=== PATIENT | male | born 1945 | race Caucasian/White ===

== ENCOUNTER 2016-09-10 08:07 | Emergency (ER) | payer OTHER ==
--- NOTE | 2016-09-10 10:05 | DIAGNOSTIC IMAGING REPORT ---
PROCEDURE: XR CHEST 1 VIEW INDICATION: SHORTNESS OF BREATH TECHNIQUE: Portable AP view 08:52 a.m. COMPARISON: None. FINDINGS: Poor inspiration with minor left basilar atelectasis. Heart and mediastinum are normal. Thorax is normal. IMPRESSION: 1. Minor left basilar atelectasis.
--- NOTE | 2016-09-10 10:09 | ED CLINICAL REPORT ---
Clinical Report - Physicians/Mid Levels [facility] [address] [place] [address] 09/10/2016 8:10 Patient: EVANS BLUE Time Seen: 08:36. HISTORY OF PRESENT ILLNESS Chief Complaint: CHEST PAIN. At its maximum, severity described as 10 / 10. When seen in the E.D., severity described as 4 / 10. Modifying factors- worsened by deep breaths. It is described as sharp and stabbing and it is described as located in the left chest area. Similar symptoms previously: Many times. Recent medical care: Not recently seen/assessed. REVIEW OF SYSTEMS No fever, chills, cough, abdominal pain or black stools. No difficulty with urination or bloody stools. All systems otherwise negative, except as recorded above. PAST HISTORY PCP: Kait [place] Illness: Anticoaulation, DVT, PE. SOCIAL HISTORY Never smoker. Heavy alcohol use. No drug use. ADDITIONAL NOTES The nursing notes have been reviewed. PHYSICAL EXAM Vital Signs: 09/10/2016 08:20 BP: 159/98. HR: 74. RR: 18. O2 saturation: 97%. Temp: 98.3 F. Pain level now: 10/10. Appearance: Alert. Oriented X3. No acute distress. Eyes: Eyes normal inspection. ENT: Pharynx normal. CVS: Normal heart rate and rhythm. Heart sounds normal. Respiratory: No respiratory distress. Chest pain reproducible with deep breathing. Breath sounds normal. Chest nontender. Abdomen: Soft and nontender. Bowel sounds normal. No organomegaly. No mass. Back: Normal external inspection. Skin: Skin warm and dry. Normal skin color. No rash. Extremities: No calf tenderness. No lower extremity edema. Neuro: Oriented X 3. LABS, X-RAYS, AND EKG EKG: EKG time: (826). No acute process. No acute ischemia. Normal EKG. Normal sinus rhythm. Rate: 73. Normal P waves. Normal KEYSHAWN. Normal QRS complex. Normal axis. Normal ST and T waves, QT and QTc. Prior EKG unavailable. The study has been interpreted contemporaneously by me. The study has been independently viewed by me. The EKG appears to be a good tracing. Interpretation time: 0900(initially read by Dr. Pimentel). Chest X-ray: No acute disease. Normal lung markings present. Normal heart size. Mediastinum normal. Great vessels normal. No infiltrate. Views: AP. Technique: good. The X-rays were independently viewed by me and interpreted contemporaneously by me. Prior films were not available for comparison. Interpretation time: 10:01. Laboratory Tests: CBC w Diff: (CIRO: 09/10/2016 08:20) ( MsgRcvd 09/10/2016 08:53) Final results Test Result Flag Units (Reference) WHITE BLOOD COUNT 6.6 K/uL (4.5-11.5) RED BLOOD COUNT 5.14 M/uL (4.50-5.90) HEMOGLOBIN 15.2 gm/dL (13.5-17.5) HEMATOCRIT 44.4 % (41.0-53.0) MEAN CELL VOLUME 86 fL (80-100) MEAN CORPUSCULAR HGB 30 pg (26-34) MEAN CORPUSCULAR HGB CONC 34 g/dL (31-37) RED CELL DISTRIBUTION WIDTH 13.6 % (11.6-14.8) PLATELET COUNT 172 K/uL (150-400) NEUTROPHIL % 68.6 % (50-75) LYMPH % 19.7 L % (25-40) MONO % 10.1 % (3-14) EOSINOPHIL % 1.4 % (0-4) BASOPHIL % 0.2 % (0-2) PT with INR: (CIRO: 09/10/2016 08:20) ( MsgRcvd 09/10/2016 09:01) Final results Test Result Flag Units (Reference) INR 1.0 (0.8-1.2) Low Intensity Therapy: INR 1.5-2.0 PT range 18.5-23.1Mod.Intensity Therapy: INR 2.0-3.0 PT range 23.1-31.5High Intensity Therapy: INR 2.5-3.5 PT range 27.4-35.5High Intensity Therapy 2: INR 3.0-4.0 PT range 31.5-39.3 D-DIMER QUANTITATIVE < 0.27 L ug/mLFEU (0.27-0.52) The primary value of this quantitative assay relates toits negative predictive value (i.e. exclusion) of pulmonaryembolism/deep vein thrombosis/DIC.Elevated levels of d-dimer may also occur with:, age, cancer, inflammation, liver disease,post-op, infection, hematoma, coronary disease, peripheralarteriopathy, bleeding disorders and thrombolytic treatment.Results should be correlated with other clinical andradiological data.Testing Methodology: Latex Immunoassay BNP: (CIRO: 09/10/2016 08:20) ( [facility] 09/10/2016 09:13) Final results Test Result Flag Units (Reference) B-TYPE NATRIURETIC PEPTIDE 16.3 pg/ml (5-100) CHEM 13 PANEL: (CIRO: 09/10/2016 08:20) ( [facility] 09/10/2016 09:07) Final results Test Result Flag Units (Reference) GLUCOSE 117 H mg/dL (70-110) BUN 16 mg/dL (7-18) CREATININE 0.8 mg/dL (0.6-1.3) Estimated GFR >60 mL/min Estimated GFR- >60 mL/min Note: Persistent reduction over 3 months in eGFR<60 mL/min/1.73 m2 defines CKD. Patients with eGFR values>=60 mL/min/1.73 m2 may also have CKD if evidence ofpersistent proteinuria. Additional information may be foundat www.kidney.org. SODIUM 141 mmol/L (136-145) POTASSIUM 4.2 mmol/L (3.5-5.1) CHLORIDE 104 mmol/L (98-107) CARBON DIOXIDE 29 mmol/L (21-32) CALCIUM 9.1 mg/dL (8.5-10.1) TOTAL PROTEIN 7.4 g/dL (6.4-8.2) ALBUMIN 4.1 g/dL (3.3-5.0) BILIRUBIN, TOTAL 0.6 mg/dL (0.0-1.0) ALKALINE PHOSPHATASE 60 U/L (46-116) AST (SGOT) 45 H U/L (15-37) ALT (SGPT) 81 H U/L (12-78) CPK 161 U/L (24-260) MAGNESIUM 2.1 mg/dL (1.8-2.4) TROPONIN I <0.05 L ng/mL (0.00-1.5) TROPONIN REFERENCE RANGE:<0.1 NEGATIVE0.1-1.5 INDETERMINANT>1.5 POSITIVE . PROGRESS AND PROCEDURES Disposition: Discharged home in good and improved condition. Condition: good. CLINICAL IMPRESSION Chest wall pain .12 lead EKG performed. INSTRUCTIONS Your Current Medications: CONTINUE TAKING THE FOLLOWING MEDICATIONS: Calcium + D Oral. Co Q-10 Oral. Crestor Oral. Glucosamine Oral : Tablet 500 mg, 3 tabs daily. Hydrochlorothiazide Oral : 12.5 mg daily. Iron Oral. Lisinopril Oral : 10 mg daily. Lovenox Injection : 150 daily. Multivitamins Oral. Omeprazole Oral : 20 mg daily. Vit B 12*. Prescription Medications: Tramadol 50 mg: take 1 orally every 6 hours as needed for pain and stiffness. Do not take more than 8 tablets in a 24 hour period. Dispense twenty (20). No refills. Follow-up: Follow up with your doctor if not better. Call for an appointment. Blood pressure screening was not performed during this visit because the patient has an active diagnosis of hypertension. (Electronically signed by Deniz Noel Dr. 09/10/2016 11:14)
--- NOTE | 2016-09-10 10:09 | ED ORDER SUMMARY ---
..... Patient: EVANS BLUE OrderSheet [facility] VisitID: [id number] [address] [place] [address] 71y, M Registration Date/Time: 09/10/2016 ORDER SHEET Weight: 90.7 kg (stated) Allergies: Morphine Sulfate, Niacin GENERAL ORDERS: Chest 1V Urgent (08:09/10/2016 Rylan BARTLETT) (Ack 8:45 Mahi) (10:10 MWinterer R.N.) Social Service Manager (Continuous) (08:09/10/2016 Rylan BARTLETT) (8:41 MWinterer R.N.) Cardiac Panel Stat (:09/10/2016 Rylan BARTLETT) (Ack 8:45 Mahi) (8:45 MWinterer R.N.) PT with INR Urgent (08:09/10/2016 Rylan BARTLETT) (Ack 8:45 Mahi) (8:45 MWinterer R.N.) D-Dimer Urgent (08:09/10/2016 Rylan BARTLETT) (Ack 8:45 Mahi) (8:45 MWinterer R.N.) BNP Urgent (08:09/10/2016 Rylan BARTLETT) (Ack 8:45 Mahi) (8:45 MWinterer R.N.) EKG - ER Stat (08:09/10/2016 Rylan BARTLETT) (8:41 OHernandez) Pulse oximeter (08:09/10/2016 Rylan BARTLETT) (8:41 MWinterer R.N.) Oxygen (2 L/min) (NC) (08:09/10/2016 Rylan BARTLETT) (Ack 8:41 MWinterer R.N.) (8:44 MWinterer R.N.) MEDICATION ORDERS: Aspirin PO 325 mg (Do not crush or chew, NOW) (08:09/10/2016 Rylan BARTLETT) (Ack 8:41 MWinterer R.N.) (8:46 MWinterer R.N.) IV FLUIDS: IV Saline Lock (08:09/10/2016 Rylan BARTLETT) (8:41 MWinterer R.N.) ORDER SHEET NOTES: [Electronically signed by Deniz Noel Dr. (11:14 09/10/2016)] [Electronically signed by Kecia Daniels R.N. (12:16 09/10/2016)] [Electronically locked/signed by Kecia Daniels R.N. (12:16 09/10/2016)]
--- NOTE | 2016-09-10 10:09 | ED ORDER SUMMARY ---
..... Patient: EVANS BLUE OrderSheet [facility] VisitID: [id number] [address] [place] [address] 71y, M Registration Date/Time: 09/10/2016 ORDER SHEET Weight: 90.7 kg (stated) Allergies: Morphine Sulfate, Niacin GENERAL ORDERS: Chest 1V Urgent (08:09/10/2016 Rylan BARTLETT) (Ack 8:45 Mahi) (10:10 MWinterer R.N.) Correction Officer Head (Continuous) (08:09/10/2016 Rylan BARTLETT) (8:41 MWinterer R.N.) Cardiac Panel Stat (:09/10/2016 Rylan BARTLETT) (Ack 8:45 Mahi) (8:45 MWinterer R.N.) PT with INR Urgent (08:09/10/2016 Rylan BARTLETT) (Ack 8:45 Mahi) (8:45 MWinterer R.N.) D-Dimer Urgent (08:09/10/2016 Rylan BARTLETT) (Ack 8:45 Mahi) (8:45 MWinterer R.N.) BNP Urgent (08:09/10/2016 Rylan BARTLETT) (Ack 8:45 Mahi) (8:45 MWinterer R.N.) EKG - ER Stat (08:09/10/2016 Rylan BARTLETT) (8:41 OHernandez) Pulse oximeter (08:09/10/2016 Rylan BARTLETT) (8:41 MWinterer R.N.) Oxygen (2 L/min) (NC) (08:09/10/2016 Rylan BARTLETT) (Ack 8:41 MWinterer R.N.) (8:44 MWinterer R.N.) MEDICATION ORDERS: Aspirin PO 325 mg (Do not crush or chew, NOW) (08:09/10/2016 Rylan BARTLETT) (Ack 8:41 MWinterer R.N.) (8:46 MWinterer R.N.) IV FLUIDS: IV Saline Lock (08:09/10/2016 Rylan BARTLETT) (8:41 MWinterer R.N.) ORDER SHEET NOTES: [Electronically signed by Deniz Noel Dr. (11:14 09/10/2016)] [Electronically signed by Kecia Daniels R.N. (12:16 09/10/2016)] [Electronically locked/signed by Kecia Daniels R.N. (12:16 09/10/2016)]
--- NOTE | 2016-09-10 10:09 | ED NURSING NOTES ---
Clinical Report - Nurses [facility] [place] [address] [place] [address] 09/10/2016 8:10 Patient: EVANS BLUE TRIAGE Acuity: LEVEL 2. Chief Complaint: CHEST PAIN and SHORTNESS OF BREATH. Alert. No acute distress. SEPSIS SCREEN: Sepsis Screen. Negative (no infection suspected/documented). --08:28 Kecia Daniels R.N. 08:20 09/10/16. BP: 159/98. HR: 74. RR: 18. O2 saturation: 97% on room air. Temp: 98.3 F (oral). Pain level now: 01/31. --08:28 Kecia Daniels R.N. Weight: 90.7 kg stated. Height/Length: 72 inches Per Patient. BMI: 27.1. --08:23 Kecia Daniels R.N. Medications Lisinopril Oral 10 mg, daily. --08:25 Kecia Daniels R.N. Iron Oral. --08:25 Kecia Daniels R.N. Glucosamine Oral (Tablet 500 mg) 3 tabs, daily . --08:25 Kecia Daniels R.N. Co Q-10 Oral. --08:25 Kecia Daniels R.N. Multivitamins Oral. --08:26 Kecia Daniels R.N. Calcium + D Oral. --08:26 Kecia Daniels R.N. Hydrochlorothiazide Oral 12.5 mg, daily. --08:26 Kecia Daniels R.N. Vit B 12. --08:26 Kecia Daniels R.N. Omeprazole Oral 20 mg, daily. --08:26 Kecia Daniels R.N. Crestor Oral. --08:27 Kecia Daniels R.N. Lovenox Injection 150, daily. --08:27 Kecia Daniels R.N. Medication/allergy information source: the patient. --08:28 Kecia Daniels R.N. Allergies Morphine Sulfate. --08:24 Kecia Daniels R.N. Niacin. --08:24 Kecia Daniels R.N. History Arrived by private vehicle. Historian: patient. Accompanied by spouse. Primary physician ([facility]). This started today. ( Pt reports left sided chest pain that is worse on inspiration. Pt also reports he has a history of PE and had wrist surgery 2 days ago.). Treatment HEMODIALYSIS RN: None. PAST MEDICAL HX: Immunizations: up-to-date. SOCIAL HX: Never smoker. Heavy alcohol use. No drug use. FALL RISK ASSESSMENT: Fall risk assessment completed. No fall risk identified. NUTRITIONAL RISK ASSESSMENT: The nutritional risk assessment revealed no deficiencies. FUNCTIONAL ASSESSMENT: Functional assessment: no impairments noted. LEARNING NEEDS ASSESSMENT: The learning needs assessment revealed no barriers. SKIN INTEGRITY ASSESSMENT: Skin integrity risk assessment completed. No skin integrity risk identified. --08:28 Kecia Daniels R.N. PROBLEMS: Carpal Tunnel Syndrome. Pulmonary Embolism. Arthritis. Hypercholesterolemia. Hypertension. --08:28 Kecia Daniels R.N. ADDITIONAL SURGERIES: Carpal Tunnel Surgery. Knee Surgery. --08:28 Kecia Daniels R.N. Assessment GENERAL / NEURO / PSYCH: Alert. Oriented X 4. Appears in no acute distress. Patient appears calm and cooperative. RESPIRATORY: Respirations not labored. CVS: Capillary refill less than 2 seconds. GI / : Abdomen soft and nontender. SKIN: Skin is pale. Mucous membranes are pink. Skin is warm and dry. --08:28 Kecia Daniels R.N. Interventions ID band on patient. To treatment room. --08:28 Kecia Daniels R.N. PHYSICAL ASSESSMENT 08:29 09/10/16. Ambulatory to room. GENERAL / NEURO / PSYCH: Alert. Oriented X 4. Appears in no acute distress. HEENT: Mucous membranes are pink. RESPIRATORY: Respirations not labored. CVS: Pulses within normal limits. Capillary refill less than 2 seconds. GI / : Abdomen soft. EXTREMITIES: No lower extremity edema. SKIN: Skin is warm and dry. Normal skin turgor. --08:29 Kecia Daniels R.N. NURSING PROGRESS NOTES 08:30 09/10/2016 Site #1 started via IV in the right antecubital space with an 20g angiocath, with aseptic technique and good blood return; one attempt. Blood drawn: rainbow set. Labeled in the presence of the patient and sent to the lab. Saline lock flushed with 10 mL saline. --08:30 Kecia Daniels R.N. 08:30 09/10/16. Patient gowned. Two patient identifiers checked. Checked patient name and birthdate. Call light placed in reach. Side rails up x 1. Bed placed in lowest position. Brakes of bed on. Patient ready for evaluation- chart flagged and ED physician notified. --08:30 Kecia Daniels R.N. EKG time: (825). EKG was performed by a tech and shown to the ED physician. --08:30 Kecia Daniels R.N. 08:46 09/10/2016 Aspirin PO 325 mg given. Allergies verified and confirmed 5 rights. --08:46 Kecia Daniels R.N. ( portable xray done at the bedside.). --08:56 Ambika Inman R.N. 09:50 09/10/16. BP: 141/92. HR: 70. RR: 16. O2 saturation: 95% on nasal cannula at 2 liters/minute. --09:51 Kecia Daniels R.N. DISPOSITION / DISCHARGE Departure time: 10:Sep 10 2016. Condition at departure: improved and stable. No learning barriers present. Reviewed medication(s) side effects, precautions and dosing information. Prescription(s) given to the patient. Patient verbalized understanding. Written instructions provided in Uzbek. The patient was discharged by the physician. He was discharged home and accompanied by spouse. He left the Emergency Department ambulatory and via private vehicle. Spouse driving. --12:16 Kecia Daniels R.N. 12:15 09/10/16. BP: 148/90. HR: 67. RR: 20. O2 saturation: 95% on room air. Temp: 98.2 F (oral). Pain level now: 5/10. --12:16 Kecia Daniels R.N. 10:16 09/10/2016 Site #1 removed upon discharge. Catheter intact. Manual pressure and bandage applied. --12:16 Kecia Daniels R.N. Locked/Released at 09/10/2016 12:16 by Kecia Daniels R.N.
--- NOTE | 2016-09-10 12:16 | ED DISCHARGE INSTRUCTIONS ---
Patient: EVANS BLUE General Instructions [facility] VisitID: [id number] [address] [place] [address] 71y, M Registration Date/Time: 09/10/2016 Chest wall pain .12 lead EKG performed. INSTRUCTIONS Your Current Medications: CONTINUE TAKING THE FOLLOWING MEDICATIONS: Calcium + D Oral. Co Q-10 Oral. Crestor Oral. Glucosamine Oral : Tablet 500 mg, 3 tabs daily. Hydrochlorothiazide Oral : 12.5 mg daily. Iron Oral. Lisinopril Oral : 10 mg daily. Lovenox Injection : 150 daily. Multivitamins Oral. Omeprazole Oral : 20 mg daily. Vit B 12*. Prescription Medications: Tramadol 50 mg: take 1 orally every 6 hours as needed for pain and stiffness. Do not take more than 8 tablets in a 24 hour period. Dispense twenty (20). No refills. Follow-up: Follow up with your doctor if not better. Call for an appointment. Blood pressure screening was not performed during this visit because the patient has an active diagnosis of hypertension. ADDITIONAL INFORMATION Chest Strain A strain of the chest is due to stretching and tearing of the muscle fibers between the ribs. This may occur as a result of severe coughing, strenuous lifting or twisting injuries of the upper back. This usually causes increased pain with movement or deep breathing. This may take a few days to a few weeks to heal. Home Care: Rest. Avoid heavy lifting or strenuous exertion. Avoid any activity that causes pain. If you have a severe cough, use a cough syrup such as Robitussin DM (containing dextromethorphan) unless another cough medicine was prescribed. You may use acetaminophen (Tylenol) or ibuprofen (Motrin, Advil) to control pain, unless another medicine was prescribed. [ NOTE: If you have chronic liver or kidney disease or ever had a stomach ulcer or GI bleeding, talk with your doctor before using these medicines.] Follow Up with your doctor as directed. Get Prompt Medical Attention if any of the following occur: A change in the type of pain: if it feels different, becomes more severe, lasts longer, or begins to spread into your shoulder, arm, neck, jaw or back Shortness of breath or increased pain with breathing Cough with dark colored sputum (phlegm) or blood Weakness, dizziness, or fainting Fever of 100.4F (38C) or higher, or as directed by your healthcare provider Tramadol Hydrochloride Oral tablet What is this medicine? TRAMADOL (TRA ma dole) is a pain reliever. It is used to treat moderate to severe pain in adults. How should I use this medicine? Take this medicine by mouth with a full glass of water. Follow the directions on the prescription label. If the medicine upsets your stomach, take it with food or milk. Do not take more medicine than you are told to take. Talk to your compensation manager regarding the use of this medicine in children. Special care may be needed. What side effects may I notice from receiving this medicine? Side effects that you should report to your doctor or health progressive care unit registered nurse as soon as possible: allergic reactions like skin rash, itching or hives, swelling of the face, lips, or tongue breathing difficulties, wheezing confusion itching light headedness or fainting spells redness, blistering, peeling or loosening of the skin, including inside the mouth seizures Side effects that usually do not require medical attention (report to your doctor or health progressive care unit registered nurse if they continue or are bothersome): constipation dizziness drowsiness headache nausea, vomiting What may interact with this medicine? Do not take this medicine with any of the following medications: MAOIs like Carbex, Eldepryl, Marplan, Nardil, and Parnate This medicine may also interact with the following medications: alcohol or medicines that contain alcohol antihistamines benzodiazepines bupropion carbamazepine or oxcarbazepine clozapine cyclobenzaprine digoxin furazolidone linezolid medicines for depression, anxiety, or psychotic disturbances medicines for migraine headache like almotriptan, eletriptan, frovatriptan, naratriptan, rizatriptan, sumatriptan, zolmitriptan medicines for pain like pentazocine, buprenorphine, butorphanol, meperidine, nalbuphine, and propoxyphene medicines for sleep muscle relaxants naltrexone phenobarbital phenothiazines like perphenazine, thioridazine, chlorpromazine, mesoridazine, fluphenazine, prochlorperazine, promazine, and trifluoperazine procarbazine warfarin What if I miss a dose? If you miss a dose, take it as soon as you can. If it is almost time for your next dose, take only that dose. Do not take double or extra doses. Where should I keep my medicine? Keep out of the reach of children. Store at room temperature between 15 and 30 degrees C (59 and 86 degrees F). Keep container tightly closed. Throw away any unused medicine after the expiration date. What should I tell my health care provider before I take this medicine? They need to know if you have any of these conditions: brain tumor depression drug abuse or addiction head injury if you frequently drink alcohol containing drinks kidney disease or trouble passing urine liver disease lung disease, asthma, or breathing problems seizures or epilepsy suicidal thoughts, plans, or attempt; a previous suicide attempt by you or a family member an unusual or allergic reaction to tramadol, codeine, other medicines, foods, dyes, or preservatives or trying to get breast-feeding What should I watch for while using this medicine? Tell your doctor or health progressive care unit registered nurse if your pain does not go away, if it gets worse, or if you have new or a different type of pain. You may develop tolerance to the medicine. Tolerance means that you will need a higher dose of the medicine for pain relief. Tolerance is normal and is expected if you take this medicine for a long time. Do not suddenly stop taking your medicine because you may develop a severe reaction. Your body becomes used to the medicine. This does NOT mean you are addicted. Addiction is a behavior related to getting and using a drug for a non-medical reason. If you have pain, you have a medical reason to take pain medicine. Your doctor will tell you how much medicine to take. If your doctor wants you to stop the medicine, the dose will be slowly lowered over time to avoid any side effects. You may get drowsy or dizzy. Do not drive, use machinery, or do anything that needs mental alertness until you know how this medicine affects you. Do not stand or sit up quickly, especially if you are an older patient. This reduces the risk of dizzy or fainting spells. Alcohol can increase or decrease the effects of this medicine. Avoid alcoholic drinks. You may have constipation. Try to have a bowel movement at least every 2 to 3 days. If you do not have a bowel movement for 3 days, call your doctor or health progressive care unit registered nurse. Your mouth may get dry. Chewing sugarless gum or sucking hard candy, and drinking plenty of water may help. Contact your doctor if the problem does not go away or is severe. You have been given the following additional information: Chest Wall Strain Tramadol Hydrochloride Oral tablet (Electronically signed by Deniz Nole Dr. 09/10/2016 11:14)
--- NOTE | 2016-09-10 12:16 | ED MED RECONCILIATION SUMMARY ---
Patient: EVANS BLUE Medication Reconciliation Report [facility] VisitID: [id number] [address] [place] [address] 71y, M Registration Date/Time: 09/10/2016 Weight: 90.7 kg Height/Length: 72 in. BMI: 27.1 ALLERGIES: Morphine Sulfate, Niacin The patient's Home Medications are listed below: CONTINUE TAKING THE FOLLOWING MEDICATIONS: Calcium + D Oral Co Q-10 Oral Crestor Oral Glucosamine Oral (500 mg) 3 tabs, daily Hydrochlorothiazide Oral 12.5 mg, daily Iron Oral Lisinopril Oral 10 mg, daily Lovenox Injection 150, daily Multivitamins Oral Omeprazole Oral 20 mg, daily Vit B 12 The source(s) of the original Home Medication information: patient The following Medications were given to the patient in the Emergency Department: Aspirin [PO] PO 325 mg, administered: 09/10/2016 8:46:00 AM The following Medications were prescribed to the patient: Tramadol 50 mg: take 1 orally every 6 hours as needed for pain and stiffness. Do not take more than 8 tablets in a 24 hour period. Dispense twenty (20). No refills. -- Deniz Noel Dr.
--- NOTE | 2016-09-10 12:16 | ED MAR SUMMARY ---
..... Medication Administration Record [facility] [address] [place] [address] Patient: EVANS BLUE Visit ID: [id number] 71y, M Weight: 90.7 kg Height/Length: 72 in BMI: 27.1 ALLERGIES: Niacin, Morphine Sulfate Given 08:46 09/10/2016 Kecia Daniels R.N. Medication Administered: ASPIRIN [PO], Dose: 325 mg PO. Medication Ordered: Aspirin PO 325 mg (Do not crush or chew, NOW).
--- NOTE | 2016-09-10 12:16 | ED MAR SUMMARY ---
..... Medication Administration Record [facility] [address] [place] [address] Patient: EVANS BLUE Visit ID: [id number] 71y, M Weight: 90.7 kg Height/Length: 72 in BMI: 27.1 ALLERGIES: Niacin, Morphine Sulfate Given 08:46 09/10/2016 Kecia Daniels R.N. Medication Administered: ASPIRIN [PO], Dose: 325 mg PO. Medication Ordered: Aspirin PO 325 mg (Do not crush or chew, NOW).
--- NOTE | 2016-09-10 12:16 | ED MED RECONCILIATION SUMMARY ---
Patient: EVANS BLUE Medication Reconciliation Report [facility] VisitID: [id number] [address] [place] [address] 71y, M Registration Date/Time: 09/10/2016 Weight: 90.7 kg Height/Length: 72 in. BMI: 27.1 ALLERGIES: Morphine Sulfate, Niacin The patient's Home Medications are listed below: CONTINUE TAKING THE FOLLOWING MEDICATIONS: Calcium + D Oral Co Q-10 Oral Crestor Oral Glucosamine Oral (500 mg) 3 tabs, daily Hydrochlorothiazide Oral 12.5 mg, daily Iron Oral Lisinopril Oral 10 mg, daily Lovenox Injection 150, daily Multivitamins Oral Omeprazole Oral 20 mg, daily Vit B 12 The source(s) of the original Home Medication information: patient The following Medications were given to the patient in the Emergency Department: Aspirin [PO] PO 325 mg, administered: 09/10/2016 8:46:00 AM The following Medications were prescribed to the patient: Tramadol 50 mg: take 1 orally every 6 hours as needed for pain and stiffness. Do not take more than 8 tablets in a 24 hour period. Dispense twenty (20). No refills. -- Deniz Noel Dr.
--- NOTE | 2016-09-10 12:16 | ED DISCHARGE INSTRUCTIONS ---
Patient: EVANS BLUE General Instructions [facility] VisitID: [id number] [address] [place] [address] 71y, M Registration Date/Time: 09/10/2016 Chest wall pain .12 lead EKG performed. INSTRUCTIONS Your Current Medications: CONTINUE TAKING THE FOLLOWING MEDICATIONS: Calcium + D Oral. Co Q-10 Oral. Crestor Oral. Glucosamine Oral : Tablet 500 mg, 3 tabs daily. Hydrochlorothiazide Oral : 12.5 mg daily. Iron Oral. Lisinopril Oral : 10 mg daily. Lovenox Injection : 150 daily. Multivitamins Oral. Omeprazole Oral : 20 mg daily. Vit B 12*. Prescription Medications: Tramadol 50 mg: take 1 orally every 6 hours as needed for pain and stiffness. Do not take more than 8 tablets in a 24 hour period. Dispense twenty (20). No refills. Follow-up: Follow up with your doctor if not better. Call for an appointment. Blood pressure screening was not performed during this visit because the patient has an active diagnosis of hypertension. ADDITIONAL INFORMATION Chest Strain A strain of the chest is due to stretching and tearing of the muscle fibers between the ribs. This may occur as a result of severe coughing, strenuous lifting or twisting injuries of the upper back. This usually causes increased pain with movement or deep breathing. This may take a few days to a few weeks to heal. Home Care: Rest. Avoid heavy lifting or strenuous exertion. Avoid any activity that causes pain. If you have a severe cough, use a cough syrup such as Robitussin DM (containing dextromethorphan) unless another cough medicine was prescribed. You may use acetaminophen (Tylenol) or ibuprofen (Motrin, Advil) to control pain, unless another medicine was prescribed. [ NOTE: If you have chronic liver or kidney disease or ever had a stomach ulcer or GI bleeding, talk with your doctor before using these medicines.] Follow Up with your doctor as directed. Get Prompt Medical Attention if any of the following occur: A change in the type of pain: if it feels different, becomes more severe, lasts longer, or begins to spread into your shoulder, arm, neck, jaw or back Shortness of breath or increased pain with breathing Cough with dark colored sputum (phlegm) or blood Weakness, dizziness, or fainting Fever of 100.4F (38C) or higher, or as directed by your healthcare provider Tramadol Hydrochloride Oral tablet What is this medicine? TRAMADOL (TRA ma dole) is a pain reliever. It is used to treat moderate to severe pain in adults. How should I use this medicine? Take this medicine by mouth with a full glass of water. Follow the directions on the prescription label. If the medicine upsets your stomach, take it with food or milk. Do not take more medicine than you are told to take. Talk to your poured wall foreman regarding the use of this medicine in children. Special care may be needed. What side effects may I notice from receiving this medicine? Side effects that you should report to your doctor or health home care music therapist as soon as possible: allergic reactions like skin rash, itching or hives, swelling of the face, lips, or tongue breathing difficulties, wheezing confusion itching light headedness or fainting spells redness, blistering, peeling or loosening of the skin, including inside the mouth seizures Side effects that usually do not require medical attention (report to your doctor or health home care music therapist if they continue or are bothersome): constipation dizziness drowsiness headache nausea, vomiting What may interact with this medicine? Do not take this medicine with any of the following medications: MAOIs like Carbex, Eldepryl, Marplan, Nardil, and Parnate This medicine may also interact with the following medications: alcohol or medicines that contain alcohol antihistamines benzodiazepines bupropion carbamazepine or oxcarbazepine clozapine cyclobenzaprine digoxin furazolidone linezolid medicines for depression, anxiety, or psychotic disturbances medicines for migraine headache like almotriptan, eletriptan, frovatriptan, naratriptan, rizatriptan, sumatriptan, zolmitriptan medicines for pain like pentazocine, buprenorphine, butorphanol, meperidine, nalbuphine, and propoxyphene medicines for sleep muscle relaxants naltrexone phenobarbital phenothiazines like perphenazine, thioridazine, chlorpromazine, mesoridazine, fluphenazine, prochlorperazine, promazine, and trifluoperazine procarbazine warfarin What if I miss a dose? If you miss a dose, take it as soon as you can. If it is almost time for your next dose, take only that dose. Do not take double or extra doses. Where should I keep my medicine? Keep out of the reach of children. Store at room temperature between 15 and 30 degrees C (59 and 86 degrees F). Keep container tightly closed. Throw away any unused medicine after the expiration date. What should I tell my health care provider before I take this medicine? They need to know if you have any of these conditions: brain tumor depression drug abuse or addiction head injury if you frequently drink alcohol containing drinks kidney disease or trouble passing urine liver disease lung disease, asthma, or breathing problems seizures or epilepsy suicidal thoughts, plans, or attempt; a previous suicide attempt by you or a family member an unusual or allergic reaction to tramadol, codeine, other medicines, foods, dyes, or preservatives or trying to get breast-feeding What should I watch for while using this medicine? Tell your doctor or health home care music therapist if your pain does not go away, if it gets worse, or if you have new or a different type of pain. You may develop tolerance to the medicine. Tolerance means that you will need a higher dose of the medicine for pain relief. Tolerance is normal and is expected if you take this medicine for a long time. Do not suddenly stop taking your medicine because you may develop a severe reaction. Your body becomes used to the medicine. This does NOT mean you are addicted. Addiction is a behavior related to getting and using a drug for a non-medical reason. If you have pain, you have a medical reason to take pain medicine. Your doctor will tell you how much medicine to take. If your doctor wants you to stop the medicine, the dose will be slowly lowered over time to avoid any side effects. You may get drowsy or dizzy. Do not drive, use machinery, or do anything that needs mental alertness until you know how this medicine affects you. Do not stand or sit up quickly, especially if you are an older patient. This reduces the risk of dizzy or fainting spells. Alcohol can increase or decrease the effects of this medicine. Avoid alcoholic drinks. You may have constipation. Try to have a bowel movement at least every 2 to 3 days. If you do not have a bowel movement for 3 days, call your doctor or health home care music therapist. Your mouth may get dry. Chewing sugarless gum or sucking hard candy, and drinking plenty of water may help. Contact your doctor if the problem does not go away or is severe. You have been given the following additional information: Chest Wall Strain Tramadol Hydrochloride Oral tablet (Electronically signed by Deniz Noel Dr. 09/10/2016 11:14)
== END 2016-09-10 10:20 | disposition home or self-care (01) ==
LOC: ED SRH 08:07
DX: R07.89 Other chest pain (principal); Z88.5 Allergy status to narcotic agent; Z88.8 Allergy status to other drugs, medicaments and biological substances
CPT/HCPCS: 90100; 90616; 91320; 91556; 92610; 92720; 94060; 95059